=== PATIENT | female | born 1990 ===

== ENCOUNTER 2024-08-01 17:15 | Emergency (ER) | payer MEDICAID, OTHER ==
[~2024-08-01] VITALS: Ht 162.6 cm; Wt 63.6 kg
[2024-08-01 17:21] VITALS: TEMP 99.4
[2024-08-01 17:37] LABS: COVID AG,FIA SOURCE NASAL SWAB
[2024-08-01 18:38] LABS: SARS-COV2 (COVID) ANTIGEN,FIA Negative (Negative)
[2024-08-01 18:40] LABS: INFLUENZA TYPE B NEGATIVE FOR TYPE B (NEGATIVE)
[2024-08-01 18:52] LABS: INFLUENZA TYPE A POSITIVE FOR TYPE A (NEGATIVE)
[2024-08-01 22:34] LABS: APPEARANCE,URINE CLEAR (CLEAR); BILIRUBIN,URINE NEGATIVE (NEGATIVE); COLOR,URINE LIGHT YELLOW (YELLOW); GLUCOSE, URINE (UA) NEGATIVE (NEGATIVE); KETONES,URINE TRACE mg/dL (NEGATIVE); LEUKOCYTE ESTERASE ,URINE TRACE (NEGATIVE); NITRATE,URINE NEGATIVE (NEGATIVE); OCCULT BLOOD,URINE NEGATIVE (NEGATIVE); PROTEIN,URINE NEGATIVE (NEGATIVE); SPECIFIC GRAVITIY, URINE 1.014 (1.003-1.030); UROBILINOGEN,URINE <=1.0 mg/dL (<=1.0)
[2024-08-01 22:49] LABS: BACTERIA,URINE Few /HPF (None Seen); RBC,URINE 0-2 /HPF (0-2); SQUAMOUS EPITHELIAL CELL,UR Moderate /LPF (None Seen)
[2024-08-01 22:50] LABS: MUCUS,URINE Few LPF (None Seen)
[2024-08-01] MEDS: ACETAMINOPHEN 325 MG TABLET PO ONE (23:13)
[2024-08-01 23:16] VITALS: BP 134/49; PULSE 68; RESP 20; O2SAT 98
[2024-08-01] MEDS ORDERED: OSEL75CA17 PO (23:59)
== END 2024-08-02 00:02 | disposition home or self-care (01) ==
LOC: EMS 17:15
DX: J11.1 Influenza due to unidentified influenza virus with other respiratory manifestations (principal); Z88.0 Allergy status to penicillin; Z20.822 Contact with and (suspected) exposure to COVID-19
CPT/HCPCS: 71045; 81001; 87086; 87804; 99284